=== PATIENT | female | born 1955 | race African-American/Black ===

== ENCOUNTER 2019-04-21 16:30 | Emergency (ER) | payer OTHER, MEDICARE, SELFPAY ==
[2019-04-21 16:44] VITALS: BP 171/81; PULSE 74; RESP 16; TEMP 36.6; O2SAT 100; BMI 30.9
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
== END 2019-04-21 19:20 | disposition home or self-care (01) ==
PROVIDERS: Emergency Provider Nurse Practitioner Family
DX: S13.4XXA Sprain of ligaments of cervical spine, initial encounter (principal); S09.90XA Unspecified injury of head, initial encounter; V49.50XA Passenger injured in collision with unspecified motor vehicles in traffic accident, initial encounter
CPT/HCPCS: 70450; 72072; 72125; 99284

== ENCOUNTER → 2020-11-19 10:44 | Outpatient (CLI) | payer MEDICARE, OTHER, SELFPAY ==
--- NOTE | 2020-11-19 | DI.MG.S_ITS ---
BILATERAL DIGITAL SCREENING MAMMOGRAM 3D/2D WITH CAD: 11/19/2020 CLINICAL: Routine screening. Comparison is made to exams dated: 07/14/2017 mammogram, 06/25/2016 mammogram, and 06/11/2015 mammogram - outside location. The tissue of both breasts is heterogeneously dense. This may lower the sensitivity of mammography. Current study was also evaluated with a Computer Aided Detection (CAD) system. No significant masses, calcifications, or other findings are seen in either breast. Right breast scar marker. There has been no significant interval change. IMPRESSION: NEGATIVE There is no mammographic evidence of malignancy. A 1 year screening mammogram is recommended. This exam was interpreted at Station ID: [id number]. NOTE: For mammograms, a report in lay terms will be sent to the patient. Approximately 15% of breast malignancies will not be visualized mammographically. In the management of a palpable breast mass, a negative mammogram must not discourage biopsy of a clinically suspicious lesion. Electronically Signed By: Herminio Martines M.D. slc/:11/19/2020 12:34:40 letter sent: Normal Exam ACR BI-RADS Category 1: Negative [id number]
== END ==
PROVIDERS: PCP Internal Medicine; Referring Provider Internal Medicine; Visit Provider Internal Medicine
DX: Z12.31 Encounter for screening mammogram for malignant neoplasm of breast (principal); Z13.820 Encounter for screening for osteoporosis; Z78.0 Asymptomatic menopausal state; Z90.722 Acquired absence of ovaries, bilateral; Z87.891 Personal history of nicotine dependence
CPT/HCPCS: 77063; 77067; 77080

== ENCOUNTER → 2021-11-26 11:34 | Outpatient (CLI) | payer MEDICARE, OTHER, SELFPAY ==
--- NOTE | 2021-11-26 | DI.MG.S_ITS ---
BILATERAL DIGITAL SCREENING MAMMOGRAM 3D/2D WITH CAD: 11/26/2021 CLINICAL: Routine screening. Comparison is made to exams dated: 11/19/2020 mammogram - [facility], 07/14/2017 mammogram, and 06/25/2016 mammogram - outside location. The tissue of both breasts is heterogeneously dense. This may lower the sensitivity of mammography. Current study was also evaluated with a Computer Aided Detection (CAD) system. No significant masses, calcifications, or other findings are seen in either breast. There has been no significant interval change. IMPRESSION: NEGATIVE There is no mammographic evidence of malignancy. A 1 year screening mammogram is recommended. Based on the Tyrer Cuzick model (a risk assessment model) the patient's lifetime risk is 3.9% and her 10 year risk is 2.2%. According to the ACR, ACS, and NCCN guidelines, an annual breast MRI exam along with mammogram is recommended if the patient's lifetime risk is 20% or greater. This exam was interpreted at Station ID: [id number]. NOTE: For mammograms, a report in lay terms will be sent to the patient. Approximately 15% of breast malignancies will not be visualized mammographically. In the management of a palpable breast mass, a negative mammogram must not discourage biopsy of a clinically suspicious lesion. Electronically Signed By: Herminio yancey/mauro:11/26/2021 13:12:01 letter sent: Normal Exam ACR BI-RADS Category 1: Negative [id number]
== END ==
PROVIDERS: PCP Internal Medicine; Referring Provider Internal Medicine; Visit Provider Internal Medicine
DX: Z12.31 Encounter for screening mammogram for malignant neoplasm of breast (principal)
CPT/HCPCS: 77063; 77067

== ENCOUNTER 2022-02-08 15:52 | Emergency (ER) | payer MEDICARE, OTHER, SELFPAY ==
[2022-02-08 16:07] VITALS: BP 187/81; PULSE 86; RESP 19; TEMP 36.7; O2SAT 99; BMI 31.5
--- NOTE | 2022-02-08 16:14 | DI.RAD.S_ITS ---
PROCEDURE: XR SHOULDER RT MIN 2V INDICATIONS: fall TECHNIQUE: 3 views of the shoulder were acquired. COMPARISON: None. FINDINGS: Bones: No fractures or dislocations. No suspicious bony lesions. Visualized ribs appear intact. Degenerative changes are seen, including mild subacromial spurring. Mild lateral downsloping of the acromion can be seen. Soft tissues: No suspicious soft tissue calcifications. The visualized lung demonstrates an unremarkable appearance. IMPRESSION: No acute fractures are seen. Underlying degenerative changes are seen. If it would be helpful for clinical management decision making, please consider a dedicated, scheduled shoulder MRI for further evaluation (assuming that there is no contraindication). Dictated by: Nathan Mejía M.D. on 02/08/2022 at 15:44 Approved by: Nathan Mejía M.D. on 02/08/2022 at 15:44
--- NOTE | 2022-02-08 18:59 | ED_ITS ---
HPI - Extremity Injury (Upper) <Joel Harry PA-C - Last Filed: 02/09/22 19:33> General Chief Complaint: Extremity Injury, Upper Stated Complaint: Fell yesterday, Can't lift arm Time Seen by Provider: 02/08/22 18:45 Source: patient Mode of arrival: Family Vehicle History of Present Illness HPI narrative: Patient is a 66-year-old female who presents to the emergency room today with complaint right shoulder pain that started yesterday after she was working at her home. Stated that yesterday evening she was moving some patio furniture and fell forward and landed on her right shoulder. States she has had shoulder pain since then and now it is difficult for her to move it. For her pain she has been icing and using ibuprofen that is helped with the pain. States the pain is made worse by moving the shoulder and is made better by keeping the shoulder still. Main concern today is making sure that the shoulder is not broken. Denies any other concerns. Related Data Previous Rx's Medication Instructions Recorded cyclobenzaprine 10 mg tablet 10 mg PO TID PRN muscle spasm #20 04/21/19 tabs Allergies Allergy/AdvReac Type Severity Reaction Status Date / Time No Known Drug Allergies Allergy Verified 02/08/22 16:07 Review of Systems <Joel Harry PA-C - Last Filed: 02/09/22 19:33> Review of Systems Narrative: R.O.S.: General: No fever, chills or fatigue. Cardiovascular: No chest pain or palpitations Respiratory: No S.O.B. HEENT: No congestion, ear pain, rhinorrhea, sore throat or tinnitus Gastrointestinal: No nausea or vomiting : No urinary concerns Skin: No rash or associated abnormalities Musculoskeletal: Right shoulder pain? Neurological: Awake, alert and in not apparent distress. No Headaches, changes in vision or other related neurological concerns. Patient History <Joel Harry PA-C - Last Filed: 02/09/22 19:33> Social History Smoking Status: Former smoker Smoking Status: Former smoker tobacco type: cigarettes alcohol intake frequency: 0-2 drinks per day Substance Use Type: does not use Exam <Joel Harry PA-C - Last Filed: 02/09/22 19:33> Narrative Exam Narrative: Physical Exam: ? General: normal appearance, well developed, well nourished, alert, and awake. Not in acute distress. ? Head: Normocephalic, no lesions. Chest: Lungs CTAB, no rales, rhonchi or wheezes. ?? Heart: RRR, no murmurs, rubs or gallops. Eyes: PERRLA, EOM's full, conjunctivae clear. ? Neuro: Physiological, no localizing findings, CN3-12 intact. ?? Extremities: Patient's right shoulder has tenderness to touch on the lateral posterior and anterior surfaces. Patient has extreme pain when actively lifting the shoulder either able to flex extend and abduct the shoulder with passive range of motion. Shoulder has no marked swelling or erythema noted on visual inspection. Viral unable to do complete exam the patient complained of pain. ? Skin: Normal, no rashes, no lesions noted. ?? PSYCHIATRIC: The mood is good, no blunted affect. Speech is clear. Thought pr ocess is linear, thought content is appropriate. The voice is without significant inflection. Gastrointestinal: Soft; NT; ND; Pos BS with Neg. rebound tenderness. No scars or major deformities noted on Visual Inspection. Initial Vital Signs Initial Vital Signs: Vital Signs Temperature 98.1 F 02/08/22 16:07 Pulse Rate 86 02/08/22 16:07 Respiratory Rate 19 02/08/22 16:07 Blood Pressure 187/81 H 02/08/22 16:07 Pulse Oximetry 99 02/08/22 16:07 Oxygen Delivery Method 02/08/22 16:07 <Claudio Ly DO - Last Filed: 02/10/22 07:10> Initial Vital Signs Initial Vital Signs: Vital Signs Temperature 98.1 F 02/08/22 16:07 Pulse Rate 86 02/08/22 16:07 Respiratory Rate 19 02/08/22 16:07 Blood Pressure 187/81 H 02/08/22 16:07 Pulse Oximetry 99 02/08/22 16:07 Oxygen Delivery Method 02/08/22 16:07 Course <Joel Harry PA-C - Last Filed: 02/09/22 19:33> Orders Ordered: ED Orders 02/08/22 16:14 XR shoulder RT min 2V Stat Vital Signs Vital signs: Vital Signs - 8 hr 02/08/22 16:07 Temperature 98.1 F Pulse Rate 86 Respiratory Rate 19 Blood Pressure 187/81 H Pulse Oximetry 99 Oxygen Delivery Method Room Air <Claudio Ly DO - Last Filed: 02/10/22 07:10> Orders Ordered: ED Orders 02/08/22 16:14 XR shoulder RT min 2V Stat Vital Signs Vital signs: Vital Signs - 8 hr 02/08/22 16:07 Temperature 98.1 F Pulse Rate 86 Respiratory Rate 19 Blood Pressure 187/81 H Pulse Oximetry 99 Oxygen Delivery Method Room Air MDM - Extremity Injury (Upper) <Joel Harry PA-C - Last Filed: 02/09/22 19:33> Imaging Data Extremity x-ray #1: Radiologist's Impression: [address] [address] XRay Report Signed Patient: Caridad Golden MR#: [id number] : 1955 Acct:[id number] Age/Sex: 66 / F Date of Service: 02/08/22 Loc: ED Accession Number: [id number] ?? Procedure: XR shoulder RT min 2V Ordering Provider: Julio Wasserman MD PROCEDURE:? XR SHOULDER RT MIN 2V ? INDICATIONS:? fall ? TECHNIQUE:? 3 views of the shoulder were acquired.? ? COMPARISON:? None. ? FINDINGS:? ? Bones:? No fractures or dislocations.? No suspicious bony lesions.? Visualized ribs appear intact.? Degenerative changes are seen, including mild subacromial spurring.? Mild lateral downsloping of the acromion can be seen. ? Soft tissues:? No suspicious soft tissue calcifications.? The visualized lung demonstrates an unremarkable appearance. ? ? IMPRESSION:? No acute fractures are seen. ? Underlying degenerative changes are seen. ? If it would be helpful for clinical management decision making, please consider a dedicated, scheduled shoulder MRI for further evaluation (assuming that there is no contraindication).? ? ? Dictated by: Nathan Mejía M.D. on 02/08/2022 at 15:44 ? ? Approved by: Nathan Mejía M.D. on 02/08/2022 at 15:44? MDM Narrative Medical decision making narrative: Patient is 66-year-old female who presents to the emergency room today with complaint right shoulder pain after injuring it moving parapharyngeal yesterday. X-ray is not discover a fracture or dislocation of the shoulder and physical exam was consistent with a right shoulder sprain strain. Right arm sling was ordered to be placed on the patient today. Patient was also advised to continue to use icing and [id number] nonsteroidal anti-inflammatories for the pain patient also advised to report to the emergency room if any emergent concerns arise. First and patient advised to contact her primary care provider should any nonemergent concerns arise. Patient agrees with plan Discharge Plan Departure Patient Disposition: Home Clinical Impression: Sprain and strain of unspecified site of shoulder and upper arm Instructions: Shoulder Sprain Activity Restrictions/Additional Instructions: *You have been diagnosed with a sprain to her right shoulder. I suggest she continue to use shoulder sling to help support the shoulder. Also suggest she refrain from any strenuous or overuse activities involving the right shoulder. I also suggest you continue to use icing and nonsteroidal anti-inflammatories as a means to help with the shoulder pain. Also please return to the emergency room if any emergent concerns arise. Please report to your primary care provider for any nonemergent concerns arise. [ ] *What to do: *Please continue to take your regular medications as directed. [ ] New medication prescriptions sent to your pharmacy: [ ] [ ] New medication written as a paper prescription [x] No new medications given *Please follow up with your primary care provider in 2-3 days, call for an appointment. Let them know you were seen in the Emergency Department and that we ask that you be seen in follow up. We will electronically transmit a record of today's note if your PCP is in our system *If you do not have a primary care provider please contact [facility] Resource line at [phone]. They will ask some questions about your medical history and help get you set up with a doctor in the community. *Return to Emergency Department if you should have any new, worsening or concerning symptoms, such as [fever greater than 101 F, shaking chills, worsening pain, persistent vomiting or other bothersome symptoms] Prescriptions: No Action cyclobenzaprine 10 mg tablet 10 mg PO TID PRN (Reason: muscle spasm) Qty: 20 0RF Referrals: Orlando Rider MD [Primary Care Provider] - Visit Report Forms: Patient Portal/API <Claudio Ly DO - Last Filed: 02/10/22 07:10> Cosign ED Attending Cosarnaudature Attestation: Dr Ly Co-Sign Statement: I was available for consultation during this patient's emergency department visit. This chart is signed by myself for administrative purposes only. I did not have direct contact with this patient during this visit. They were seen independently by the APC.
== END 2022-02-08 19:33 | disposition home or self-care (01) ==
PROVIDERS: Emergency Provider Physician Assistant; PCP Internal Medicine
DX: S43.401A Unspecified sprain of right shoulder joint, initial encounter (principal); S46.911A Strain of unspecified muscle, fascia and tendon at shoulder and upper arm level, right arm, initial encounter; W18.30XA Fall on same level, unspecified, initial encounter
CPT/HCPCS: 73030; 99282; 99283

== ENCOUNTER → 2022-03-21 07:49 | Outpatient (CLI) | payer MEDICARE, OTHER, SELFPAY ==
--- NOTE | 2022-03-21 | DI.MRI.S_ITS ---
PROCEDURE: MR SHOULDER RT WO CON INDICATIONS: Unspecified injury of right shoulder TECHNIQUE: Noncontrast oblique coronal T2 fast spin echo with fat saturation, oblique sagittal T1 spin echo and T2 fast spin echo with fat saturation, axial T1 spin echo and T2 fast spin echo with fat saturation through the shoulder. COMPARISON: None. FINDINGS: Image quality: Excellent. Rotator cuff: There is full-thickness rupture of distal supraspinatus at its insertion on humeral head with up to 2.6 cm medial retraction of torn tendon fibers to the level of acromioclavicular joint. Distal infraspinatus tendinosis and low to moderate grade articular surface partial-thickness tear is seen. Distal subscapularis tendon is intact. Sagittal images demonstrate moderate supraspinatus muscle atrophy. Bones and bursae: No bone marrow contusions or fractures. Mild to moderate acromioclavicular joint osteoarthritic changes are seen with joint space narrowing and downward osteophyte formation depressing the musculotendinous junction of supraspinatus. Moderate amount of joint effusion and subacromial subdeltoid bursal fluid is seen, no gross loose bodies. Capsule and soft tissues: Fraying of superior anterior labrum at 12 to 1 o'clock position is seen concerning for subtle superior anterior labral tear. The long head of the biceps tendon appears mildly thickened. The rotator interval appears normal, without fibrosis. The coracohumeral ligament is normal in thickness. IMPRESSION: 1. Full-thickness rupture of distal supraspinatus at its insertion on the humeral head with up to 2.6 cm medial retraction of torn tendon fibers to the level of acromioclavicular joint. Distal infraspinatus tendinosis and low to moderate grade articular surface partial-thickness tear. Moderate supraspinatus muscle atrophy. 2. Mild to moderate acromioclavicular joint osteoarthritis. No fracture or dislocation. Moderate to large joint effusion and subacromial subdeltoid bursal fluid. 3. Subtle superior anterior labral tear at 12 to 1 o'clock position. 4. Proximal intra-articular portion of long head of biceps tendinosis. Dictated by: Young Darby M.D. on 03/21/2022 at 9:41 Approved by: Young Darby M.D. on 03/21/2022 at 10:06
== END ==
PROVIDERS: PCP Internal Medicine; Referring Provider Internal Medicine; Visit Provider Internal Medicine
DX: S49.91XA Unspecified injury of right shoulder and upper arm, initial encounter (principal); M19.011 Primary osteoarthritis, right shoulder; S46.811A Strain of other muscles, fascia and tendons at shoulder and upper arm level, right arm, initial encounter; X58.XXXA Exposure to other specified factors, initial encounter
CPT/HCPCS: 73221

== ENCOUNTER → 2022-12-10 09:45 | Outpatient (CLI) | payer MEDICARE, OTHER, SELFPAY ==
--- NOTE | 2022-12-10 | DI.MG.S_ITS ---
BILATERAL DIGITAL SCREENING MAMMOGRAM 3D/2D WITH CAD: 12/10/2022 CLINICAL: Routine screening. Comparison is made to exams dated: 11/26/2021 mammogram, 11/19/2020 mammogram - , and 07/14/2017 mammogram - outside location. Both breasts are heterogeneously dense, which may obscure small masses (category c / 51-75% glandular tissue). Current study was also evaluated with a Computer Aided Detection (CAD) system. No significant masses, calcifications, or other findings are seen in either breast. There has been no significant interval change. IMPRESSION: NEGATIVE There is no mammographic evidence of malignancy. A 1 year screening mammogram is recommended. Based on the Tyrer Cuzick model (a risk assessment model) the patient's lifetime risk is 3.7% and her 10 year risk is 2.2%. According to the ACR, ACS, and NCCN guidelines, an annual breast MRI exam along with mammogram is recommended if the patient's lifetime risk is 20% or greater. This exam was interpreted at Station ID: [id number]. NOTE: For mammograms, a report in lay terms will be sent to the patient. Approximately 15% of breast malignancies will not be visualized mammographically. In the management of a palpable breast mass, a negative mammogram must not discourage biopsy of a clinically suspicious lesion. Electronically Signed By: Colton steele/mauro:12/10/2022 13:26:03 letter sent: Normal Exam ACR BI-RADS Category 1: Negative [id number]
== END ==
PROVIDERS: PCP Internal Medicine; Referring Provider Internal Medicine; Visit Provider Internal Medicine
DX: Z12.31 Encounter for screening mammogram for malignant neoplasm of breast (principal)
CPT/HCPCS: 77063; 77067